=== PATIENT | male | born 1980 | race Caucasian/White ===

== ENCOUNTER 2024-09-09 14:15 | Emergency (ER) | payer OTHER, SELFPAY ==
[2024-09-09 14:20] VITALS: BP 148/85
--- NOTE | 2024-09-09 14:28 | ED.SKININJ ---
HPI-Injury
<Heriberto Zavala PA-C - Last Filed: 09/09/24 14:29>
General
Chief Complaint: Bite
Time Seen by Provider: 09/09/24 16:20
<Jessica Reyes PA-C - Last Filed: 09/09/24 22:53>
General
Source: patient
Exam Limitations: none
Nursing documentation reviewed up to this point in time: agreed with
History of Present Illness-Injury
Is pt an associate of [facility]?: No
Initial Injury comments:
Patient is a 43-year-old male presenting to the emergency department for evaluation after finding multiple bats in his house. Patient states that multiple bats were found in the kids room 3 days ago. This morning�there were 2 other bats found in a
general living space. Patient denies any known bite. Patient presents for rabies vaccination series. He denies receiving rabies vaccination in the past.
ED Provider Triage
<Heriberto Zavala PA-C - Last Filed: 09/09/24 14:29>
-
Patient seen by provider in Triage?: Seen in Triage
43-year-old male presents for rabies vaccination. There is multiple bats found in his house. Has not been previously immunized
Rabies vaccine and immunoglobulin ordered
Review of Systems
<Jessica Reyes PA-C - Last Filed: 09/09/24 22:53>
Review of Systems
Allergies reviewed?: Yes
All Other Systems: ROS reviewed and negative except as documented in HPI and ROS
Phy Exam
<Jessica Reyes PA-C - Last Filed: 09/09/24 22:53>
Physical Exam
Physical Exam:
Vitals: Mildly hypertensive, otherwise patient's vital signs are stable. Afebrile
General: Patient is well appearing, no acute distress
Skin: Warm and dry, no rashes or lesions. No evidence of bite stearns.
Head: Normocephalic, atraumatic
Throat: Protecting airway
Neck: Normal ROM, no cervical spine tenderness
Cardiac: Regular rate
Pulm: No apparent respiratory distress
Abdomen: Nondistended
Extremities: No evidence of cyanosis or edema
Neuro: Grossly intact
Psychiatric: Normal affect.
Course
<Heriberto Zavala PA-C - Last Filed: 09/09/24 14:29>
Orders/Labs/Results
Orders:
Orders
09/09/24 15:19
Rabies Immune Globulin/Pf [HyperRAB] 1,500 unit IM NOW STA
09/09/24 15:30
Rabies Vaccine (Pcec)/Pf [Rabavert Rabies Vacc W-Diluent] 2.5 unit IM .ONCE ONE
Vital Signs
Initial and Last Documented VS:
Initial Vital Signs
Temp Pulse Resp BP Pulse Ox
98 F 80 16 148/85 98
09/09/24 14:20 09/09/24 14:20 09/09/24 14:20 09/09/24 14:20 09/09/24 14:20
Last Documented Vital Signs
Temp Pulse Resp BP Pulse Ox
98 F 80 16 148/85 98
09/09/24 14:20 09/09/24 14:20 09/09/24 14:20 09/09/24 14:20 09/09/24 14:20
<Jessica Reyes PA-C - Last Filed: 09/09/24 22:53>
Orders/Labs/Results
Orders:
Orders
09/09/24 15:19
Rabies Immune Globulin/Pf [HyperRAB] 1,500 unit IM NOW STA
09/09/24 15:30
Rabies Vaccine (Pcec)/Pf [Rabavert Rabies Vacc W-Diluent] 2.5 unit IM .ONCE ONE
Vital Signs
Initial and Last Documented VS:
Initial Vital Signs
Temp Pulse Resp BP Pulse Ox
98 F 80 16 148/85 98
09/09/24 14:20 09/09/24 14:20 09/09/24 14:20 09/09/24 14:20 09/09/24 14:20
Last Documented Vital Signs
Temp Pulse Resp BP Pulse Ox
98 F 80 16 148/85 98
09/09/24 14:20 09/09/24 14:20 09/09/24 14:20 09/09/24 14:20 09/09/24 14:20
<Jessica Reyes PA-C - Last Filed: 09/09/24 22:53>
MDM/Problems Addressed
Differential Diagnosis Includes:
Not limited to: Rabies prophylaxis, etc.
MDM/Problems Addressed:
46-year-old male presenting after bat exposure in house. No known bite. No prior rabies vaccination series. Patient has stable vital signs. On exam�patient is well-appearing, no apparent distress. No evidence of bite stearns. Rabies vaccination
series initiated in emergency department today. Patient received immunoglobulin and first dose of rabies vaccine. He will visit infusion center for 3 remaining rabies vaccines on 09/12/24, 09/16/24, and 09/23/24. Return precautions discussed.
All questions answered.
Chronic conditions affecting care:
N/A
Acute Exacerbation and/or Progression of Chronic Illness:
N/A
<Jessica Reyes PA-C - Last Filed: 09/09/24 22:53>
*Pulse Oximetry
Patient hypoxic: no
*EKG
Interpreted by ED Provider?: NA
*Bung Driver Interpretation
Rate: Bung Driver- N/A
*Critical Care Note
Total Time (30-74mins, 75-104mins- exclusive of procedures): Not Applicable
ED Attending Note
<Heriberto Zavala PA-C - Last Filed: 09/09/24 14:29>
-
Portions of this chart may have been created with voice recognition software.� Occasional wrong word or��sound alike� substitutions may have occurred due to the inherent limitations of voice recognition software.
Discharge Plan
Departure
Patient Disposition: Home (Routine Discharge)
Date of Disposition: 09/09/24
Time of Disposition: 16:28
Patient with high blood pressure during this ER visit?: Yes
Condition: Good
Covid-19: Not Applicable
Discharge Problem:
Rabies, need for prophylactic vaccination against
Instructions: BLOOD PRESSURE, Rabies
Prescriptions:
New
RabAvert (PF) 2.5 unit suspension for reconstitution
2.5 unit IM ONCE Qty: 3 0RF
Rx Instructions:
Administer 1mL on 09/12/24, 09/16/24, and 09/23/24
Referrals:
Caty Villaseñor MD [Family Provider] -
Stand Alone Forms: Rabies Vaccine Post Exp Dosing
Activity Restrictions/Additional Instructions:
RETURN TO THE EMERGENCY DEPARTMENT WITH ANY FEVERS, RASH, REDNESS, SWELLING, OR SIGNS OF VACCINATION SITE REACTION, OR ANY OTHER CONCERNS
-As discussed - you will require 3 additional doses of the rabies vaccine. These should be administered on 09/12/2024, 09/16/2024, and 09/23/2024. You will need to either return to the emergency department or schedule an appoint with the infusion
clinic as described above.
-Follow-up with primary care as needed for further evaluation/management
Monitor symptoms closely and return to the emergency department with any new/worsening symptoms or other concerns
Interventions
Interventions:
*Risk Screen - Suicide Last Done: 09/09/24 14:22
*General Assessment Last Done: 09/09/24 15:14
*Neglect/Abuse Screening Last Done: 09/09/24 14:22
*ED COVID-19 Vaccine History Last Done: 09/09/24 15:14
*Nursing Disposition Last Done: 09/09/24 16:58
ED-Skin Assessment Last Done: 09/09/24 15:14
Discharge Date and Time
Discharge Date/Time: 09/09/24 16:58
Print Language: BELARUSIAN
[2024-09-09] MEDS: RABAVERT RABIES VACC W-DILUENT 2.5 UNIT IM (15:57)
[2024-09-09] MEDS: HyperRAB 1500 UNIT IM (15:59)
== END 2024-09-09 16:58 | disposition home or self-care (01) ==
LOC: EMR 14:15
PROVIDERS: EMERGENCY PHYSICIAN Emergency Medicine; FAMILY PHYSICIAN Family Medicine
DX: Z20.3 Contact with and (suspected) exposure to rabies (principal); Z23 Encounter for immunization; Z29.14 Encounter for prophylactic rabies immune globulin
CPT/HCPCS: 99282; 90471; 96372; 90375; 90675

== ENCOUNTER 2024-09-13 13:38 | Outpatient (RCR) | payer OTHER, SELFPAY ==
[2024-09-13 13:49] VITALS: BP 126/76
[2024-09-13] MEDS: RABAVERT RABIES VACC W-DILUENT 2.5 UNIT IM (14:03)
== END 2024-09-14 09:01 | disposition home or self-care (01) ==
LOC: OID 13:38
PROVIDERS: ATTENDING PHYSICIAN Emergency Medicine; FAMILY PHYSICIAN Family Medicine
DX: Z20.3 Contact with and (suspected) exposure to rabies (principal); Z23 Encounter for immunization
CPT/HCPCS: 90471; 90675

== ENCOUNTER 2024-09-23 14:25 | Outpatient (RCR) | payer BC, SELFPAY ==
[2024-09-16] MEDS: RABAVERT RABIES VACC W-DILUENT 2.5 UNIT IM (13:55)
[2024-09-23 14:30] VITALS: BP 124/85
[2024-09-23] MEDS: RABAVERT RABIES VACC W-DILUENT 2.5 UNIT IM (14:38)
== END 2024-09-24 09:25 | disposition home or self-care (01) ==
LOC: OID 14:25
PROVIDERS: ATTENDING PHYSICIAN Emergency Medicine; FAMILY PHYSICIAN Family Medicine
DX: Z20.3 Contact with and (suspected) exposure to rabies (principal); Z23 Encounter for immunization
CPT/HCPCS: 90471; 90675